=== PATIENT | female | born 1960 ===

== ENCOUNTER → 2016-11-06 | Outpatient (CLI) | payer OTHER ==
[~2016-11-06] MED LIST: AMLO5TAB66 PO; ASPI-556 PO; REGADENOSON 0.4 MG/5 ML PF SYRINGE IVP ONE; SESTAMIBI TC99M/UD ISOTOPE 1 EA INJ INJ ONE
[2016-11-06 08:30] VITALS: BP 122/73
[2016-11-06 10:29] VITALS: BP 139/76
== END | disposition home or self-care (01) ==
LOC: CARDMN 08:05
PROVIDERS: ATTEND Internal Medicine Cardiovascular Disease
DX: I25.9 Chronic ischemic heart disease, unspecified (principal)
CPT/HCPCS: 78452; 93017; 93306; A9500; J2785